=== PATIENT | female | born 1945 | race Caucasian/White ===

== ENCOUNTER 2016-06-06 23:16 | Inpatient (IN) | payer MEDICARE, OTHER ==
[~2016-06-06] VITALS: Ht 154.9 cm; Wt 62.0 kg
[2016-06-07 02:33] VITALS: Ht 154.9 cm; Wt 62.0 kg
[2016-06-07 02:34] VITALS: BP 140/67; PULSE 72; RESP 18
[2016-06-07] MEDS ORDERED: SOD CHLORIDE 0.9% 1,000 ML IV SCH (03:30)
[2016-06-07] MEDS ORDERED: morphine 2 MG INJ IV PRN ×2 (03:30→04:30)
[2016-06-07] MEDS ORDERED: ONDANSETRON 4 MG INJ IV PRN (03:30)
[2016-06-07] MEDS: LEVOFLOXACIN 250MG/D5W (PMX) 50 ML IVPB SCH (03:53)
--- NOTE | 2016-06-07 04:06 | HP ---
Date/Time of Note Date/Time of Note DATE: 06/07/16 TIME: 04:06 Assessment/Plan VTE Prophylaxis VTE Prophylaxis Intervention: anti-embolic stocking Lines/Catheters IV Catheter Type (from Nrs): Saline Lock Assessment/Plan Assessment/Plan 1) Rectal Bleeding with abnormal CT showing perirectal lymphadenopathy. DDX: Proctitis vs Malignancy - Admit to Med Surg - Pain control prn - NPO except for Magnesium Citrate for Bowel Prep - Continue IV Levaquin and Metronidazole - CONSULT: Gastroenterology - Dr. Juan notified. HPI/ROS Admit Date/Time Admit Date/Time Jun 07, 2016 at 01:58 Hx of Present Illness This is a 71-year-old female transferred to us from [facility] when she was found to be stable. She presented there with right upper quadrant pain she says it started the morning after she ate some tacos and that it radiates to her back. At the present time, she has no pain due to pain medications given in the ER. She has also been constipated for the last couple of days. Mild nausea has resolved no vomiting. She has a history of pancreatitis 14 years ago. At [place] her lipase was found to be 2632 total bilirubin 0.[address] 37 she had an acute abdominal series, ultrasound and a CT scan see below for those results as well as all of her lab results. Currently, patient has no complaints. The review of systems below. Labs and rads from [facility]: Acute abdominal series: Linear scarring at left lung base. No acute infiltrates. Moderate stool in colon with nonspecific pattern although consider mild ileus. Ultrasound abdomen complete colon 1 cholelithiasis with thickened gallbladder wall with surrounding pericholecystic edema. No ductal dilation. Possible acute cholecystitis. [address] abdomen/pelvis without contrast: 1 mildly distended gallbladder with some apparent edema of the gallbladder wall. No obvious stones or biliary ductal dilation. Acute cholecystitis should be considered. 2 normal pancreas. 3 hepatomegaly. Old granulomatous disease of liver. 4 nonspecific bowel gas pattern. Mild sigmoid diverticulosis 5 calcified uterine fundal fibroid. WBCs 13.9 with 72% neutrophils; Hemoglobin/ematocrit 13.9/41.8; Platelets 237 Sodium 137; potassium 4.0; chloride 97: CO2 27; U Miroslava/creatinine 16/0.58; glucose 128 AST 43; ALTs 37; alkaline phosphatase 77; total bilirubin 0.8; albumin/globulin ratio 1.00 EKG done at [place] [facility], interpreted by myself: Normal sinus rhythm at 88 bpm no acute changes. This EKG was done on June 26 at 2017 at 1558 ROS General: Admits: Denies: Fever, Chills, Poor Appetite, Generalized Body Aches Eyes: Admits: Denies: Blurry Vision, Double Vision HENT: Admits: Denies: Ear Pain/Pressure, Runny/Stuffy Nose, Sore Throat Cardiovascular: Admits: Denies: Chest Pain, Palpitations, Leg Swelling Pulmonary: Admits: Denies: Cough, Wheeze, Shortness of Breath Gastrointestinal: Admits: Blood in Stool, intermittently x 8 days; Abdominal Pain, RESOLVED on Pain Medication (IV Morphine) Denies: Nausea, Vomiting, Diarrhea, Black-Colored Stool Urogenital: Admits: Denies: Burning with Urination, Urinary Frequency, Blood in Urine Musculoskeletal: Admits: Denies: Joint Pain, Joint Swelling, Muscle Pain Neurological: Admits: Denies: Headache, Dizziness, Numbness, Tingling, Shooting Pains Integumentary: Admits: Denies: Rash, Itch Endocrine: Admits: Denies: Excessive Thirst, Excessive Hunger, Intolerant to Cold , Intolerant to Heat Psychiatric: Admits: Denies: Anxiety, Depression PMH/Family/Social Social History Smoking Status: Never smoker Exam/Review of Systems Vital Signs Vitals Vital Signs Date Time Temp Pulse Resp B/P Pulse Ox O2 Delivery O2 Flow Rate FiO2 06/07/16 02:34 97.6 72 18 140/67 97 Room Air Intake and Output 06/06/16 06/06/16 06/07/16 15:00 23:00 07:00 Output Total 200 ml Balance -200 ml Exam Exam General: WD/WN Spanis-Speaking female, alert and oriented, in no acute distress Eyes: Sclera White, EOMI HENT: Normocephalic/Atraumatic, External Ears/Nose Normal, Moist Mucus Membranes Neck: Supple, Trachea Midline Cardiovascular: Normal Rate, Regular Rhythm, Normal S1 and S2, No Murmur, No Extra Sounds. Radial pulse +2/4. No pedal Edema. Pulmonary: Clear to Auscultation Bilaterally, Normal Respiratory Effort, No Rales, Rhonchi or Wheezes Gastrointestinal: Normoactive Bowel Sounds, Soft, Non-Tender/Non-Distended, No Hepatosplenomegaly Appreciated, No Pulsatile Masses Urogenital: Deferred Musculoskeletal: Normal Muscle Bulk and Tone Neurological: CN II - XII Grossly Intact, Non-Focal, Speech Normal Integumentary: Normal Moisture and Temperature, Good Turgor, No Jaundice, No Rash Lymphatic: No Cervical Lymphadenopathy Psychiatric: Appropriate Mood and Affect, Good Eye Contact Medications Medications Current Medications Morphine Sulfate 2 mg 2 mg Q4H PRN IV PAIN; Start 06/07/16 at 03:30 Levofloxacin/ Dextrose 50 ml @ 50 mls/hr Q24H IVPB Last administered on 03:53; Admin Dose 50 MLS/HR; Start 06/07/16 at 03:30 Metronidazole/N/A (Flagyl 500 Mg (Pmx)/Evac Container) 50 ml @ 50 mls/hr Q8 IVPB ; Start 06/07/16 at 06:00 Ondansetron HCl (Zofran Inj) 4 mg Q4H PRN IV NAUSEA AND/OR VOMITING; Start 06/07 at 03:30 Docusate Sodium 100 mg 100 mg BID PO ; Start 06/07/16 at 09:00 Sodium Chloride (NS) 1,000 ml @ 100 mls/hr Q10H IV Last administered on 03:53; Admin Dose 100 MLS/HR; Start 06/07/16 at 03:30 JACKELYN ALLRED DO Jun 07, 2016 04:06
[2016-06-07] MEDS: SOD CHLORIDE 0.9% 1,000 ML IV SCH ×2 (04:27→15:58)
[2016-06-07] MEDS ORDERED: ACETAMINOPHEN 325 MG TAB PO PRN (04:30)
[2016-06-07] MEDS ORDERED: NACL 0.9% 3 ML SYG IV SCH (04:30)
[2016-06-07 05:27] LABS: ADD SCAN DIFF NO; BASOPHILS % 0.1 % (0.0-2.0); EOSINOPHILS # 0.3 10^3/ul (0.0-0.5); EOSINOPHILS % 3.5 % (0.0-7.0); HEMATOCRIT 40.4 % (37.0-47.0); HEMOGLOBIN 13.6 g/dl (12.0-16.0); LYMPHOCYTES # 2.7 10^3/ul (0.8-2.9); LYMPHOCYTES % 31.4 % (15.0-51.0); MEAN CORPUSCULAR HEMOGLOBIN 29.5 pg (29.0-33.0); MEAN CORPUSCULAR HGB CONC 33.7 g/dl (32.0-37.0); MEAN CORPUSCULAR VOLUME 87.6 fl (82.0-101.0); MONOCYTE # 0.5 10^3/ul (0.3-0.9); MONOCYTES % 5.7 % (0.0-11.0); NEUTROPHILS % 59.1 % (39.0-77.0); PLATELET COUNT 238 10^3/UL (140-415); RED BLOOD COUNT 4.61 10^6/ul (4.20-5.40); RED CELL DISTRIBUTION WIDTH 13.2 % (11.5-14.5); WHITE BLOOD COUNT 8.5 10^3/ul (4.8-10.8)
[2016-06-07] MEDS: metroNIDAZOLE 500 MG/NS (PMX) 250 MG in EVAC CONTAINER 1 BOTTLE IVPB SCH ×3 (05:39→21:26)
[2016-06-07 05:51] LABS: ALBUMIN 3.9 g/dl (3.3-4.9); ALBUMIN/GLOBULIN RATIO 1.21; BILIRUBIN,INDIRECT 0.9 mg/dl (0-1.1); BILIRUBIN,TOTAL 0.9 mg/dl (0.2-1.3); CALCIUM 8.6 mg/dl (8.4-10.2); CREATININE 0.49 mg/dl (0.44-1.00); POTASSIUM 3.6 mmol/L (3.5-5.1); TOTAL PROTEIN 7.1 g/dl (6.1-8.1)
[2016-06-07 07:00] VITALS: BP 119/70; RESP 20
[2016-06-07] MEDS: DOCUSATE SODIUM 100 MG CAP PO SCH ×2 (09:00→20:35)
[2016-06-07] MEDS ORDERED: FAMOTIDINE 20 MG INJ IV SCH (09:00)
--- NOTE | 2016-06-07 11:00 | CONS ---
DATE OF ADMISSION: 06/07/2016 DATE OF CONSULTATION: 06/07/2016 REASON FOR CONSULTATION: Biliary pancreatitis. HISTORY OF PRESENT ILLNESS: The patient is a 71-year-old female who was transferred here from [place]. She presented there with right upper quadrant abdominal pain. She was found to have gallsto eloise as well as an elevated lipase of 2632 with otherwise normal LFTs. She is transferred here for c ontinuance of care. Since her arrival she states that she feels markedly improved. She has had no fevers, chills, jaundice or change in the color of her urine or stools. PAST MEDICAL HISTORY: No previous abdominal surgery. OUTPATIENT MEDICATIONS: None. ALLERGIES: NONE. REVIEW OF SYSTEMS: HEAD, EARS, EYES, NOSE, THROAT: Unremarkable. PULMONARY: No history of pneumonia, shortness of breath or asthma. CARDIAC: No history of chest pain, SD or arrhythmia. ABDOMEN: As in the HPI. EXTREMITIES: Unremarkable. PHYSICAL EXAMINATION: GENERAL: The patient is a very pleasant, Hungarian speaking 71-year-old female who is awake and alert , in no acute distress. HEAD, EARS, EYES, NOSE, THROAT: Within normal limits. LUNGS: Clear. HEART: Regular rhythm. ABDOMEN: Slightly tender throughout the epigastrium. EXTREMITIES: Unremarkable. LABORATORY DATA: Laboratory data here showed hematocrit of 40 with a white count of 8500 without le ft shift. The patient's BUN, glucose, electrolytes are unremarkable. Lipase has come down to 468. IMPRESSION: Biliary pancreatitis. Pancreatitis is resolving nicely. PLAN: MRCP to rule out choledocholithiasis. If the MRCP shows a clear common duct, laparoscopic ch olecystectomy will be arranged. I have discussed the procedure, indication, alternatives and risks in detail with the patient and family who have a very reasonable understanding of her situation and agree to the proposed plan of therapy as outlined. Dictated By: CHAPO DOOLEY/CHRIS Conf#: [id number] DID#: [id number]
--- NOTE | 2016-06-07 12:07 | RADRPT ---
PROCEDURE: MRI abdomen without contrast; MRCP CLINICAL INDICATION: abdominal pain TECHNIQUE: Multiplanar, multisequence imaging of the abdomen was obtained without contrast. Imagi ng includes axial and coronal T2 fat saturated images. In addition, a dedicated high T2 signal intensity MRCP images were obtained in multiple planes with 3-D reconstructions. COMPARISON: none FINDINGS: Study is slightly limited from motion. There is gallbladder wall thickening with trace pericholecys tic fat stranding and fluid. Punctate layering gallstones are partially visualized within the gallb ladder. There is uniform signal intensity of the liver without evidence of mass. There is a flow void seen within the portal vein without gross evidence for portal vein thrombus. The kidneys are symmetric without hydronephrosis or mass. The adrenal glands are within normal limi ts. The pancreas is mostly obscured by motion. There is no evidence of bowel obstruction or inflammatory changes of the mesentery. There is a air and fecal filled colon. Aortic atherosclerosis is present. There are no enlarged lymph nodes. Ther e are degenerative changes in the lumbar spine. IMPRESSION: There is cholelithiasis with findings suspicious for cholecystitis. No MRI evidence of choledocholithiasis however the study is limited by motion. No evidence of bilia ry ductal dilatation. Fecal filled colon. No acute process in the abdomen. RPTAT: AA .Naun Burns MD, Date Time Electronically viewed and signed by .Naun Burns MD, MD on 06/07/2016 12:07 .Fouzia/
--- NOTE | 2016-06-07 13:17 | PN ---
Date/Time of Note Date/Time of Note DATE: 06/07/16 TIME: 13:15 Assessment/Plan VTE Prophylaxis VTE Prophylaxis Intervention: SCD's Lines/Catheters [facility] Saline Lock Assessment/Plan Chief Complaint/Hosp Course ASSESSMENT and PLAN: 1) Acute Pancreatitis Likely gallstone pancreatitis, no evidence of choledocholithiasis on MRI of the abdomen N.p.o., follow-up lipase in a.m. 2) Cholecysitits, possibly acute Continue Zosyn, n.p.o. General surgery has been consulted, follow his recommendation for possible laparoscopic versus open cholecystectomy DVT prophylaxis, SCD Problems: Subjective 24 Hr Interval Summary Free Text/Dictation Continues to complain of having minor abdominal discomfort No nausea vomiting N.p.o. Exam/Review of Systems Vital Signs Vitals Vital Signs Date Time Temp Pulse Resp B/P Pulse Ox O2 Delivery O2 Flow Rate FiO2 06/07/16 07:00 98.6 70 20 119/70 95 06/07/16 02:34 Room Air Intake and Output 06/06/16 06/06/16 06/07/16 15:00 23:00 07:00 Intake Total 400 ml Output Total 600 ml Balance -200 ml Exam General: The patient is well-developed, Not in acute distress. HEENT: Atraumatic, normocephalic. The pupils are equal and round . Neck: Supple with full range of motion. Chest: Normal expansion of the thorax during inspiration Lungs: Clear to auscultation bilaterally Heart: Normal S1-S2, Regular rhythm and rate. Abdomen: Soft , nontender, nondistended , bowel sounds are present. Extremities: Normal to inspection, no edema no cyanosis Neurologic: Normal mental status,The patient is awake, alert and oriented . Results Result Diagram: 06/07/16 0424 06/07/16 0424 Results 24 hrs Laboratory Tests Test 06/07/16 04:24 White Blood Count 8.5 Red Blood Count 4.61 Hemoglobin 13.6 Hematocrit 40.4 Mean Corpuscular Volume 87.6 Mean Corpuscular Hemoglobin 29.5 Mean Corpuscular Hemoglobin Concent 33.7 Red Cell Distribution Width 13.2 Platelet Count 238 Mean Platelet Volume 11.0 H Neutrophils % 59.1 Lymphocytes % 31.4 Monocytes % 5.7 Eosinophils % 3.5 Basophils % 0.1 Nucleated Red Blood Cells % 0.0 Neutrophils # 5.0 Lymphocytes # 2.7 Monocytes # 0.5 Eosinophils # 0.3 Basophils # 0.0 Nucleated Red Blood Cells # 0.0 Sodium Level 138 Potassium Level 3.6 Chloride Level 105 Carbon Dioxide Level 24 Anion Gap 13 Blood Urea Nitrogen 14 Creatinine 0.49 Glucose Level 153 Calcium Level 8.6 Total Bilirubin 0.9 Direct Bilirubin 0.00 Indirect Bilirubin 0.9 Aspartate Amino Transf (AST/SGOT) 32 Alanine Aminotransferase (ALT/SGPT) 38 Alkaline Phosphatase 77 Total Protein 7.1 Albumin 3.9 Globulin 3.20 Albumin/Globulin Ratio 1.21 Lipase 468 H Medications Medications Current Medications Levofloxacin/ Dextrose 50 ml @ 50 mls/hr Q24H IVPB Last administered on 03:53; Admin Dose 50 MLS/HR; Start 06/07/16 at 03:30 Metronidazole/N/A (Flagyl 500 Mg (Pmx)/Evac Container) 50 ml @ 50 mls/hr Q8 IVPB Last administered on 06/07/16 05:39; Admin Dose 50 MLS/HR; Start 06/07/16 at 06:00 Ondansetron HCl (Zofran Inj) 4 mg Q4H PRN IV NAUSEA AND/OR VOMITING; Start 06/07 at 03:30 Docusate Sodium 100 mg 100 mg BID PO ; Start 06/07/16 at 09:00 Sodium Chloride (NS) 1,000 ml @ 100 mls/hr Q10H IV ; Start 06/07/16 at 04:27 Acetaminophen (Tylenol Tab) 650 mg Q6H PRN PO PAIN LEVEL 1-3 OR FEVER; Start at 04:30 Morphine Sulfate (morphine) 2 mg Q4H PRN IV SEVERE PAIN LEVEL 7-10; Start at 04:30 Famotidine (Pepcid Iv) 20 mg Q12 IV Last administered on 06/07/16 10:44; Admin Dose 20 MG; Start 06/07/16 at 09:00 DIMA FLOWER MD Jun 07, 2016 13:17
[2016-06-07] MEDS ORDERED: ARTIFICIAL TEARS 15 ML OPH BOTH EYES PRN (14:00)
[2016-06-07 18:31] LABS: INR 1.01; PROTIME 13.3 Sec (12.2-14.2)
[2016-06-07 19:57] VITALS: BP 135/65; PULSE 64; RESP 18
[2016-06-07 20:06] VITALS: BP 135/65; RESP 20
--- NOTE | 2016-06-07 21:02 | RADRPT ---
PROCEDURE: XR Chest. CLINICAL INDICATION: Preoperative. TECHNIQUE: Single frontal view. COMPARISON: None. FINDINGS: The lungs are clear. The heart size is normal. There is no pleural effusion. There is no pneumothorax. IMPRESSION: 1. Normal chest radiograph. RPTAT: QQ .Jaren Abreu MD, Date Time Electronically viewed and signed by .Jaren Abreu MD, on 06/07/2016 21:01 .R/
[2016-06-08] VITALS (25 sets, daily range): BP systolic 100–129; BP diastolic 53–70; PULSE 82–92; RESP 16–24
[2016-06-08] MEDS: SOD CHLORIDE 0.9% 1,000 ML IV SCH ×3 (00:46→20:22)
[2016-06-08] MEDS: LEVOFLOXACIN 250MG/D5W (PMX) 50 ML IVPB SCH (03:30)
[2016-06-08] MEDS: metroNIDAZOLE 500 MG/NS (PMX) 250 MG in EVAC CONTAINER 1 BOTTLE IVPB SCH ×3 (05:22→21:58)
[2016-06-08 05:31] LABS: ADD SCAN DIFF NO
[2016-06-08 05:32] LABS: BASOPHILS % 0.4 % (0.0-2.0); EOSINOPHILS # 0.5 10^3/ul (0.0-0.5); EOSINOPHILS % 6.2 % (0.0-7.0); HEMATOCRIT 41.7 % (37.0-47.0); HEMOGLOBIN 13.7 g/dl (12.0-16.0); LYMPHOCYTES # 2.7 10^3/ul (0.8-2.9); LYMPHOCYTES % 34.2 % (15.0-51.0); MEAN CORPUSCULAR HEMOGLOBIN 29.2 pg (29.0-33.0); MEAN CORPUSCULAR HGB CONC 32.9 g/dl (32.0-37.0); MEAN CORPUSCULAR VOLUME 88.9 fl (82.0-101.0); MEAN PLATELET VOLUME 10.9 fl (7.4-10.4); MONOCYTE # 0.5 10^3/ul (0.3-0.9); NEUTROPHIL # 4.3 10^3/ul (1.6-7.5); PLATELET COUNT 231 10^3/UL (140-415); RED BLOOD COUNT 4.69 10^6/ul (4.20-5.40); RED CELL DISTRIBUTION WIDTH 13.2 % (11.5-14.5)
[2016-06-08 05:45] LABS: ALBUMIN 3.8 g/dl (3.3-4.9); POTASSIUM 3.6 mmol/L (3.5-5.1)
[2016-06-08 05:47] LABS: BILIRUBIN,INDIRECT 1.2 mg/dl (0-1.1); BILIRUBIN,TOTAL 1.2 mg/dl (0.2-1.3); CREATININE 0.61 mg/dl (0.44-1.00)
[2016-06-08 05:48] LABS: ALBUMIN/GLOBULIN RATIO 1.15; TOTAL PROTEIN 7.1 g/dl (6.1-8.1)
[2016-06-08 05:49] LABS: CALCIUM 8.7 mg/dl (8.4-10.2)
[2016-06-08] MEDS: DOCUSATE SODIUM 100 MG CAP PO SCH ×2 (09:00→21:57)
[2016-06-08] MEDS: FAMOTIDINE 20 MG INJ IV SCH (09:26)
[2016-06-08] MEDS ORDERED: BUPIVACAINE 0.25% (MPF) 30 ML INJ ONE (11:31)
[2016-06-08] MEDS ORDERED: PROPOFOL 20 ML ONE (11:37)
[2016-06-08] MEDS ORDERED: SUCCINYLCHOLINE CHLORIDE 100 MG/5 ML SYG IV ONE (11:37)
[2016-06-08] MEDS ORDERED: MIDAZOLAM 1 MG/ML 2 ML INJ ONE (11:37)
[2016-06-08] MEDS ORDERED: ROCURONIUM 50 MG INJ ONE (11:37)
[2016-06-08] MEDS ORDERED: CEFAZOLIN 1 GM INJ ONE (11:57)
[2016-06-08] MEDS ORDERED: DEXAMETHASONE 4 MG/ML 1 ML INJ ONE (12:00)
[2016-06-08] MEDS ORDERED: ONDANSETRON 4 MG INJ ONE (12:00)
[2016-06-08] MEDS ORDERED: FAMOTIDINE 20 MG INJ ONE (12:03)
[2016-06-08] MEDS ORDERED: hydrALAzine 20 MG INJ ONE (12:21)
[2016-06-08] MEDS ORDERED: NEOSTIGMINE 3 MG/3 ML SYRINGE ONE ×2 (12:23→12:25)
[2016-06-08] MEDS ORDERED: GLYCOPYRROLATE 0.4 MG INJ ONE (12:25)
--- NOTE | 2016-06-08 12:27 | HPN ---
Date/Time of Note Date/Time of Note DATE: 06/08/16 TIME: 12:27 Interval H&P Admission Note Pt. seen H&P reviewed: No system changes CHAPO BERMUDEZ MD Jun 08, 2016 12:27
[2016-06-08] MEDS ORDERED: hydrALAzine 20 MG INJ IV PRN (12:30)
[2016-06-08] MEDS ORDERED: morphine 2 MG INJ IV PRN (12:30)
[2016-06-08] MEDS ORDERED: OXYCODONE/ACETAMINOPHEN (5/325) TAB PO PRN ×2 (12:30)
[2016-06-08] MEDS ORDERED: MEPERIDINE 25 MG INJ IV PRN (12:30)
[2016-06-08] MEDS ORDERED: PROCHLORPERAZINE 10 MG INJ IV PRN (12:30)
[2016-06-08] MEDS ORDERED: ONDANSETRON 4 MG INJ IV PRN (12:30)
[2016-06-08] MEDS ORDERED: HYDROmorphONE (0.2 MG/ML) 10ML SYG IV PRN ×2 (12:30)
--- NOTE | 2016-06-08 14:02 | PN ---
Date/Time of Note Date/Time of Note DATE: 06/08/16 TIME: 13:59 Assessment/Plan VTE Prophylaxis VTE Prophylaxis Intervention: SCD's Lines/Catheters IV [facility] Peripheral IV Urinary Cath still in place: No Assessment/Plan Chief Complaint/Hosp Course ASSESSMENT and PLAN: 1) Acute Pancreatitis Likely gallstone pancreatitis, no evidence of choledocholithiasis on MRI of the abdomen N.p.o., resolved, lipase level is normal 2) Cholecysitits, possibly acute Continue Zosyn, n.p.o. General surgery has been consulted, Status post laparoscopic cholecystectomy on 06/08/2016. KATHERIN drain output evaluation 3) diabetic mellitus, hemoglobin A1c 1 7.3 Started patient on low-carb diet when patient is cleared for p.o. intake by general surgery Also will start the patient on metformin DVT prophylaxis, SCD Problems: Subjective 24 Hr Interval Summary Free Text/Dictation Postop Denies of any chest pain or shortness of breath No abdominal discomfort Patient is awake alert oriented Exam/Review of Systems Vital Signs Vitals Vital Signs Date Time Temp Pulse Resp B/P Pulse Ox O2 Delivery O2 Flow Rate FiO2 06/08/16 13:45 86 17 108/70 96 Nasal Cannula 2.0 06/08/16 12:40 98.0 Intake and Output 06/07/16 06/07/16 06/08/16 15:00 23:00 07:00 Intake Total 400 ml 1050 ml Output Total 900 ml 1200 ml Balance -500 ml -150 ml Exam General: The patient is well-developed, Not in acute distress. HEENT: Atraumatic, normocephalic. The pupils are equal and round . Neck: Supple with full range of motion. Chest: Normal expansion of the thorax during inspiration Lungs: Clear to auscultation bilaterally Heart: Normal S1-S2, Regular rhythm and rate. Abdomen: Soft , nontender, nondistended , bowel sounds are hypoactive although present. Surgical site is dry and clean with no evidence of bleeding. KATHERIN tube in place Extremities: Normal to inspection, no edema no cyanosis Neurologic: Normal mental status,The patient is awake, alert and oriented . Results Result Diagram: 06/08/16 0430 06/08/16 0430 Results 24 hrs Laboratory Tests Test 06/07/16 17:59 06/08/16 04:30 Prothrombin Time 13.3 Prothrombin Time Ratio 1.0 INR International Normalized Ratio 1.01 White Blood Count 8.0 Red Blood Count 4.69 Hemoglobin 13.7 Hematocrit 41.7 Mean Corpuscular Volume 88.9 Mean Corpuscular Hemoglobin 29.2 Mean Corpuscular Hemoglobin Concent 32.9 Red Cell Distribution Width 13.2 Platelet Count 231 Mean Platelet Volume 10.9 H Neutrophils % 53.0 Lymphocytes % 34.2 Monocytes % 6.0 Eosinophils % 6.2 Basophils % 0.4 Nucleated Red Blood Cells % 0.0 Neutrophils # 4.3 Lymphocytes # 2.7 Monocytes # 0.5 Eosinophils # 0.5 Basophils # 0.0 Nucleated Red Blood Cells # 0.0 Sodium Level 138 Potassium Level 3.6 Chloride Level 102 Carbon Dioxide Level 24 Anion Gap 16 Blood Urea Nitrogen 13 Creatinine 0.61 Glucose Level 136 Hemoglobin A1c 7.4 H Calcium Level 8.7 Magnesium Level 2.0 Total Bilirubin 1.2 Direct Bilirubin 0.00 Indirect Bilirubin 1.2 H Aspartate Amino Transf (AST/SGOT) 29 Alanine Aminotransferase (ALT/SGPT) 34 Alkaline Phosphatase 71 Total Protein 7.1 Albumin 3.8 Globulin 3.30 H Albumin/Globulin Ratio 1.15 Amylase Level 54 Lipase 85 Medications Medications Current Medications Levofloxacin/ Dextrose 50 ml @ 50 mls/hr Q24H IVPB Last administered on 03:30; Admin Dose 50 MLS/HR; Start 06/07/16 at 03:30 Metronidazole/N/A (Flagyl 500 Mg (Pmx)/Evac Container) 50 ml @ 50 mls/hr Q8 IVPB Last administered on 06/08/16 05:22; Admin Dose 50 MLS/HR; Start 06/07/16 at 06:00 Ondansetron HCl (Zofran Inj) 4 mg Q4H PRN IV NAUSEA AND/OR VOMITING; Start 06/07 at 03:30 Docusate Sodium 100 mg 100 mg BID PO ; Start 06/07/16 at 09:00 Sodium Chloride (NS) 1,000 ml @ 100 mls/hr Q10H IV Last administered on 00:46; Admin Dose 100 MLS/HR; Start 06/07/16 at 04:27 Acetaminophen (Tylenol Tab) 650 mg Q6H PRN PO PAIN LEVEL 1-3 OR FEVER; Start at 04:30 Morphine Sulfate (morphine) 2 mg Q4H PRN IV SEVERE PAIN LEVEL 7-10; Start at 04:30 Eye Lubricant (Artificial Tears Oph) 2 drop Q6H PRN BOTH EYES DRY EYES Last administered on 06/07/16 15:59; Admin Dose 2 DROP; Start 06/07/16 at 14:00 Famotidine (Pepcid Iv) 20 mg DAILY IV Last administered on 06/08/16 09:26; Admin Dose 20 MG; Start 06/08/16 at 09:00 Oxycodone/ Acetaminophen (Percocet (5/ 325)) 1 tab Q4H PRN PO MILD PAIN (1-3); Start 06/08/16 at 12:30 Oxycodone/ Acetaminophen (Percocet (5/ 325)) 2 tab Q4H PRN PO MODERATE PAIN (4- 6); Start 06/08/16 at 12:30 Morphine Sulfate (morphine) 2 mg ONCE PRN IV SEVERE PAIN LEVEL 7-10; Start 06/08 at 12:30; Stop 06/08/16 at 18:00 Ondansetron HCl (Zofran Inj) 4 mg Q6H PRN IV NAUSEA; Start 06/08/16 at 12:30 DIMA FLOWER MD Jun 08, 2016 14:02
[2016-06-08] MEDS ORDERED: DEXTROSE 50% 50 ML SYRINGE IV PRN ×2 (14:30)
[2016-06-08] MEDS ORDERED: Discontinue Glyburide, Glipizide, and/or Glimepiride prior to starting Insulin XX ONE (14:30)
[2016-06-08] MEDS ORDERED: GLUCAGON 1 MG INJ IM PRN (14:30)
[2016-06-08] MEDS ORDERED: HYPOGLYCEMIA PROTOCOL when Glucose is <70 mg/dL or symptomatic <90 mg/dL. XX ONE (14:30)
[2016-06-08] MEDS ORDERED: GLUCOSE GEL 15 GRAM TUBE BUCCAL PRN (14:30)
[2016-06-08] MEDS ORDERED: GLUCOSE GEL 15 GRAM TUBE PO PRN ×2 (14:30)
--- NOTE | 2016-06-08 15:43 | OPR ---
DATE OF OPERATION: 06/08/2016 PREOPERATIVE DIAGNOSIS: Acute cholecystitis. PROCEDURE: 1. Laparoscopic cholecystectomy. 2. Placement of drain. POSTOPERATIVE DIAGNOSIS: Acute cholecystitis. SURGEON: Dr. Sanchez. ANESTHESIA: General. ANESTHESIOLOGIST: Dr. Aguila. OPERATIVE REPORT: After satisfactory general anesthesia was achieved, the abdomen was prepped and d raped in the usual fashion. The abdomen was insufflated with carbon dioxide through an umbilical Ve ress needle to 15 mmHg pressure. The Veress needle was removed and the umbilical incision extended to 5 mm through which a 5 mm trocar was placed. A 5 mm 0-degree lens was placed. Laparoscopy showe d an acutely inflamed, edematous gallbladder. Under direct visualization, a 10 mm epigastric trocar was placed as well as two 5 mm right lateral abdominal trocars. The dome of the gallbladder was gr asped and retracted superiorly. Francy pouch was retracted inferiorly. The hepatoduodenal ligame nt was carefully dissected between the gallbladder and the well-visualized boaz hepatis. A periton eal attachment anteriorly to the gallbladder was divided over a clip. The cystic duct was dissected circumferentially and triply hemoclipped and divided high at the junction of the gallbladder and th e cystic duct. The cystic artery was identified posteriorly and this was doubly hemoclipped and div ided. The gallbladder was then dissected from below using electrocautery dissection and placed inta ct into an Endo Catch, removed via the epigastric route. Hemostasis of the liver bed was made total with electrocautery. Because of the moderate amount of inflammation and edema, we elected to place a drain. A #19 round Sukh drain was placed, draining the right subhepatic space and gallbladder f aramis and exited through the lateral most puncture site where it was secured to skin with 2-0 nylon. The abdomen was then desufflated and the trocars were removed. The fascia of the epigastrium was c losed with a single suture of 0 Vicryl. The skin punctures were infiltrated with 30 mL of 0.25% elias in Marcaine and closed with claudia. Operative blood loss approximately 30 mL. Sponge and needle c ounts reported as correct x2. The patient tolerated the procedure well and without incident or comp lication. Dictated By: CHAPO DOOLEY/CHRIS Conf#: [id number] DID#: [id number] CC: RALPH DON MD;*EndCC*
[2016-06-08] MEDS: INSULIN ASPART [NOVOLOG] 3 ML PEN SC SCH ×2 (17:55→21:00)
[2016-06-09 00:59] VITALS: BP 113/58; RESP 18
[2016-06-09] MEDS ORDERED: ACCU-CHEK XX SCH (02:00)
[2016-06-09] MEDS: LEVOFLOXACIN 250MG/D5W (PMX) 50 ML IVPB SCH (03:25)
[2016-06-09 04:54] LABS: ADD SCAN DIFF NO
[2016-06-09 04:58] LABS: HEMATOCRIT 41.5 % (37.0-47.0); HEMOGLOBIN 13.7 g/dl (12.0-16.0); LYMPHOCYTES # 1.3 10^3/ul (0.8-2.9); LYMPHOCYTES % 13.3 % (15.0-51.0); MEAN CORPUSCULAR VOLUME 87.9 fl (82.0-101.0); MEAN PLATELET VOLUME 10.6 fl (7.4-10.4); MONOCYTE # 0.6 10^3/ul (0.3-0.9); MONOCYTES % 5.5 % (0.0-11.0); NEUTROPHIL # 8.1 10^3/ul (1.6-7.5); NEUTROPHILS % 80.9 % (39.0-77.0); PLATELET COUNT 251 10^3/UL (140-415); RED BLOOD COUNT 4.72 10^6/ul (4.20-5.40); RED CELL DISTRIBUTION WIDTH 13.2 % (11.5-14.5)
[2016-06-09 05:18] LABS: ALBUMIN 3.7 g/dl (3.3-4.9)
[2016-06-09 05:19] LABS: POTASSIUM 4.4 mmol/L (3.5-5.1)
[2016-06-09 05:21] LABS: ALBUMIN/GLOBULIN RATIO 1.08; BILIRUBIN,INDIRECT 0.9 mg/dl (0-1.1); BILIRUBIN,TOTAL 0.9 mg/dl (0.2-1.3); CREATININE 0.62 mg/dl (0.44-1.00); TOTAL PROTEIN 7.1 g/dl (6.1-8.1)
[2016-06-09 05:22] LABS: CALCIUM 8.8 mg/dl (8.4-10.2)
[2016-06-09] MEDS: metroNIDAZOLE 500 MG/NS (PMX) 250 MG in EVAC CONTAINER 1 BOTTLE IVPB SCH ×2 (05:24→14:55)
[2016-06-09 05:26] VITALS: BP 113/55; PULSE 72; RESP 18
[2016-06-09] MEDS: SOD CHLORIDE 0.9% 1,000 ML IV SCH ×2 (06:27→09:46)
[2016-06-09 07:45] VITALS: BP 128/62; RESP 20
[2016-06-09] MEDS: INSULIN ASPART [NOVOLOG] 3 ML PEN SC SCH ×2 (07:50→11:40)
[2016-06-09] MEDS: DOCUSATE SODIUM 100 MG CAP PO SCH (09:13)
[2016-06-09] MEDS: FAMOTIDINE 20 MG INJ IV SCH (09:13)
--- NOTE | 2016-06-09 12:19 | PN ---
DATE: 06/09/2016 Postoperative day #1. The patient is markedly symptomatically improved. She feels quite well overa ll and her abdominal examination is benign. KATHERIN drainage is minimal serosanguinous. Her CBC and her LFTs are normal. PLAN: KATHERIN drain removed at the bedside. The patient is surgically cleared for discharge home today. I have left the patient a prescription for Tylenol with codeine and Keflex. Office followup 1 wee k for staple removal. Dictated By: CHAPO DOOLEY/CHRIS Conf#: [id number] DID#: [id number]
--- NOTE | 2016-06-09 12:21 | PDOCDIS ---
Discharge Instructions CONDITION Patient Condition: Stable HOME CARE INSTRUCTIONS: Special Diet: 1800 ADA DIET ACTIVITY: Activity Restrictions: Slowly Increase Activity FOLLOW UP/APPOINTMENTS Appointments Take your medications, see your doctor in the clinic in 1 week. JULIO CESAR COSME Jun 09, 2016 12:21
[2016-06-09] MEDS ORDERED: metFORMIN 500 MG TAB PO SCH (12:30)
--- NOTE | 2016-06-09 13:08 | DS ---
DATE OF ADMISSION: 06/07/2016 DATE OF DISCHARGE: 06/09/2016 This is a 71-year-old female who was originally admitted on 06/07/2016, being discharged home on 06/09/2016. The patient presented with abdominal pain. She was transferred from an outside hospital due to insurance purposes. She was initially diagnosed with mild pancreatitis, and she was admitted to med/surg floor, seen by general surgery team as well. She was found with acute cholecystitis as well as likely gallstone pancreatitis. In any event, she was made n.p.o., given pain control medications, placed on antibiotics. She underwent surgical procedure and laparoscopic cholecystectomy. Afterwards, the patient was able to tolerate diet. Her vital signs were stable. She was able to ambulate as well. She was found with hemoglobin A1c of 7.4 as well, although she was controlled on sliding scale insulin and at times refused the insulin and her sugars remained stable. Again she has been cleared by surgery team to be discharged home today as she is in an improved condition. She will be sent with: 1. Tylenol No. 3 1 tab p.o. q. 4 hours p.r.n. 2. Keflex 500 mg p.o. q.i.d. for 7 days. DISCHARGE INSTRUCTIONS: She will need to follow with general surgery team and primary care team in the clinic in the next 1 to 2 weeks. FINAL DIAGNOSES: 1. Abdominal pain secondary to mild acute gallstone pancreatitis and cholecystitis status post cholecystectomy. 2. Mild type 2 diabetes with A1c of 7.4, now on diet control. Time spent discharging patient, 40 minutes. Dictated By: JULIO CESAR KHAN Conf#: [id number] DID#: [id number]
== END 2016-06-09 17:00 | disposition home or self-care (01) | DRG 418 ==
LOC: MS1 06-07 01:58
PROVIDERS: ADMIT Family Medicine; ATTEND Family Medicine
PROC: 0FT44ZZ Resection of Gallbladder, Percutaneous Endoscopic Approach (ICD-10-PCS; principal; 2016-06-08 11:30)
DX: K85.10 Biliary acute pancreatitis without necrosis or infection (principal); K81.0 Acute cholecystitis; E11.9 Type 2 diabetes mellitus without complications
CPT/HCPCS: 71010; 74181; 80053; 82150; 82962; 83036; 83690; 83735; 85025; 85610; 88304; J0330; J0360; J0690; J1100; J1815; J1956; J2250; J2405; J2710; J3010; J7030